=== PATIENT | female | born 1975 | race Two or more races ===

== ENCOUNTER → 2021-04-08 | Emergency (ER) | payer OTHER ==
[~2021-04-08] VITALS: Ht 167.6 cm; Wt 74.8 kg
[~2021-04-08] MED LIST: ACETAMINOPHEN650 M2; AMOX-CLAV 875-1 EACH PO; INTESTINEX680 M2 PO; KETO10TA2 PO; NORFLEX100MG PO
== END | disposition left against medical advice (07) ==
LOC: ER 02:52
DX: S81.022A Laceration with foreign body, left knee, initial encounter (principal); W45.8XXA Other foreign body or object entering through skin, initial encounter; Y93.89 Activity, other specified; Y92.098 Other place in other non-institutional residence as the place of occurrence of the external cause; Y99.8 Other external cause status